=== PATIENT | female | born 1975 | race Caucasian/White ===

== ENCOUNTER → 2016-10-21 | Outpatient (CLI) | payer MEDICAID, OTHER | END | disposition home or self-care (01) | LOC: LAB.O 07:55 | PROVIDERS: ATTEND General Practice | DX: R53.82 Chronic fatigue, unspecified (principal) ==

== ENCOUNTER 2019-08-25 13:45 | Emergency (ER) | payer BC, OTHER ==
--- NOTE | 2019-08-25 14:03 | ED.PDOC ---
History of Present Illness - General Chief Complaint: Respiratory Problem Time Seen by Provider: 08/25/19 14:00 - History of Present Illness Initial Comments: 44 yo F PMH Hysterectomy presents to ED Mother at bedside c/o cough congestion sore throat body aches x 1 week. Denies fever chills admits nausea vomiting diarrhea no blood denies chest pain sob diaphoresis. Nochange in diet rest or bladder denies drinking or smoking admits FH HTN DM does not have PMD for follow up no other c/o today. Allergies/Adverse Reactions: Allergies NO KNOWN ALLERGY Allergy (Unverified 03/26/13 10:21) Home Medications: Ambulatory Orders Acetaminophen [Tylenol Es] 1 - 2 tab PO Q6H PRN #0 tab 03/31/13 Amitriptyline HCl 100 mg PO HS #0 03/31/13 Buspirone HCl 15 mg PO DAILY #0 03/31/13 Ciprofloxacin HCl [Cipro] 250 mg PO DAILY #0 tab 03/31/13 HYDROcodone 5MG/APAP 325MG [[place] 5/325] 1 tab PO Q8H PRN #0 tab 03/31/13 Ibuprofen [Motrin] 600 mg PO Q8H PRN #0 tab 03/31/13 Magnesium Hydroxide [Milk Of Magnesia] 30 ml PO Q4-6H PRN #0 ud 03/31/13 Sertraline HCl [Zoloft] 200 mg PO DAILY #0 03/31/13 Acetaminophen [Tylenol] 650 mg PO Q6H PRN #30 tab 08/25/19 Azithromycin Tab [Zithromax Tab] 250 mg PO QDPC 5 Days #6 tab 08/25/19 Ibuprofen 600 mg PO Q6H PRN #20 tab 08/25/19 Prednisone 40 mg PO DAILY 5 Days #10 tab 08/25/19 Review of Systems - Review of Systems Constitutional: States: see HPI EENTM: States: see HPI Respiratory: States: see HPI Cardiology: States: see HPI Gastrointestinal/Abdominal: States: see HPI Genitourinary: States: see HPI Musculoskeletal: States: see HPI Skin: States: see HPI Neurological: States: see HPI Endocrine: States: see HPI Hematologic/Lymphatic: States: see HPI All other Systems: Reviewed and Negative Past Medical History (General) - Patient Medical History Hx Congestive Heart Failure: No Hx Diabetes: No Family Medical History - Family History Mother Family History: No Known Physical Exam - Physical Exam General Appearance: No apparent distress Eye Exam: bilateral normal Ears, Nose, Throat: normal ENT inspection, pharyngeal erythema Neck: non-tender, full range of motion Respiratory: normal breath sounds Cardiovascular/Chest: regular rate, rhythm Gastrointestinal/Abdominal: non tender, soft Rectal Exam: deferred Back Exam: normal inspection Extremity: normal range of motion, non-tender Neurologic: no motor/sensory deficits Skin Exam: normal color Progress - Progress Progress: 08/25/19 14:04 A/P-Pharyngitis Pneumonia Cough URI Myalgia-flu strep tylenol cxr reassess if unremarkable d/c follow up pcp referral tylenol ibuprofen prednisone azithromycin for the pharyngitis and pneumonia 08/25/19 14:35 08/25/19 14:36 EXAM DESCRIPTION: Chest,2 Views CLINICAL HISTORY: 44 years Female, cough KRISTY RISON: None available. TECHNIQUE: PA and lateral radiographs of the chest were obtained. FINDINGS: Trachea is midline.The cardiomediastinal silhouette is normal in size. The pulmonary vasculature is within normal limits. Questionable airspace opacities in the right midlung could represent early pneumonia.No evidence of pleural effusions.No evidence of pneumothorax. IMPRESSION: Questionable airspace opacities in the right midlung could represent early pneumonia. 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 08/25/19 15:11 Laboratory Tests 08/25/19 14:05 Group A Strep Rapid Negative Departure - Departure Clinical Impression: Cough, Myalgia Pneumonia Qualifiers: Pneumonia type: due to unspecified organism Laterality: unspecified laterality Lung location: unspecified part of lung Qualified Code(s): J18.9 - Pneumonia, unspecified organism Pharyngitis Qualifiers: Pharyngitis/tonsillitis etiology: unspecified etiology Qualified Code(s): J02.9 - Acute pharyngitis, unspecified URI (upper respiratory infection) Qualifiers: URI type: unspecified URI Qualified Code(s): J06.9 - Acute upper respiratory infection, unspecified Time of Disposition: 15:15 Disposition: Discharge to Home or Self Care Condition: Good Departure Forms: ED Discharge - Pt. Copy, Patient Portal Self Enrollment Referrals: Reuben Chris MD [Referring] - 1-2 Days Prescriptions: Acetaminophen [Tylenol] 650 mg PO Q6H PRN #30 tab PRN Reason: Pain Azithromycin Tab [Zithromax Tab] 250 mg PO QDPC 5 Days #6 tab Ibuprofen 600 mg PO Q6H PRN #20 tab PRN Reason: Pain Prednisone 40 mg PO DAILY 5 Days #10 tab Home Medications: Ambulatory Orders Acetaminophen [Tylenol Es] 1 - 2 tab PO Q6H PRN #0 tab 03/31/13 Amitriptyline HCl 100 mg PO HS #0 03/31/13 Buspirone HCl 15 mg PO DAILY #0 03/31/13 Ciprofloxacin HCl [Cipro] 250 mg PO DAILY #0 tab 03/31/13 HYDROcodone 5MG/APAP 325MG [[place] 5/325] 1 tab PO Q8H PRN #0 tab 03/31/13 Ibuprofen [Motrin] 600 mg PO Q8H PRN #0 tab 03/31/13 Magnesium Hydroxide [Milk Of Magnesia] 30 ml PO Q4-6H PRN #0 ud 03/31/13 Sertraline HCl [Zoloft] 200 mg PO DAILY #0 03/31/13 Acetaminophen [Tylenol] 650 mg PO Q6H PRN #30 tab 08/25/19 Azithromycin Tab [Zithromax Tab] 250 mg PO QDPC 5 Days #6 tab 08/25/19 Ibuprofen 600 mg PO Q6H PRN #20 tab 08/25/19 Prednisone 40 mg PO DAILY 5 Days #10 tab 08/25/19
[2019-08-25 14:12] VITALS: O2SAT 99
[2019-08-25] MEDS: ACETAMINOPHEN 500 MG TAB PO ONE (14:19)
--- NOTE | 2019-08-25 14:36 | RAD ---
EXAM DESCRIPTION: Chest,2 Views CLINICAL HISTORY: 44 years Female, cough COMPARISON: None available. TECHNIQUE: PA and lateral radiographs of the chest were obtained. FINDINGS: Trachea is midline.The cardiomediastinal silhouette is normal in size. The pulmonary vasculature is within normal limits. Questionable airspace opacities in the right midlung could represent early pneumonia.No evidence of pleural effusions.No evidence of pneumothorax. IMPRESSION: Questionable airspace opacities in the right midlung could represent early pneumonia. 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
[2019-08-25 15:42] VITALS: BP 99/65; TEMP 97.6
== END 2019-08-25 15:35 | disposition home or self-care (01) ==
LOC: ER 13:45
DX: J18.9 Pneumonia, unspecified organism (principal); J02.9 Acute pharyngitis, unspecified; J06.9 Acute upper respiratory infection, unspecified

== ENCOUNTER → 2020-06-21 | Outpatient (CLI) | payer BC ==
--- NOTE | 2020-06-22 09:27 | MRI ---
EXAM DESCRIPTION: Brain w/wo Contrast: Magnetic Resonance Imaging. 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 Pituitary dysfunction. COMPARISON: MRI scan of the brain December 2017. TECHNIQUE: Multiplanar, high-field MRI, multiple conventional sequences, and special sequences through the pituitary gland, without and with 1 mL per 5 kg body weight Dotarem gadolinium IV contrast. No adverse reactions. Multiple axial diffusion sequences. FINDINGS: Pituitary gland occupies most of the sella compartment. Normal signal. No large signal voids. Normal contrast enhancement with no mass showing hyperenhancement or no enhancement. No supra-sellar mass. Normal size and orientation of the infundibulum and normal enhancement. Normal signal size and enhancement of the optic chiasm, distal optic tracts, and the proximal optic nerves. Normal FLAIR and T2-weighted signal in the periventricular white matter and brenner-white matter junctions of the cerebral hemispheres. No abnormal contrast enhancement. Normal signal in the bilateral basal ganglia. Normal contrast enhancement. Normal signal in the brainstem and cerebellar hemispheres. Normal contrast enhancement. Concordance of the diffusion and non-diffusion sequences with no evidence of acute or subacute infarction. Cortical sulci, ventricles, and other CSF spaces, and the subdural spaces are normally configured for patient's age. No effacement or displacement. No midline shift. No extra-axial hemorrhage. Normal contrast enhancement. IACs are symmetric bilaterally. No fluid in the bilateral mastoid air cells. No mass effect in the bilateral Cerebellopontine angles. Normal contrast enhancement. Base of the cerebellar tonsils is slightly above the foramen magnum. Normal signal in the paranasal sinuses. The bony calvarium is intact. IMPRESSION: 1. Normal-sized pituitary gland is of normal signal and enhancement. No mass. No expansion of the sella or mass effect on the sella, normal signal. No suprasellar mass. 2. Normal noncontrast MRI diffusion study of the brain with no evidence of acute significant ischemia, or acute or subacute infarction.. No abnormal contrast enhancement in the brain or brainstem. Electronically signed by: Cornelius Yeboah MD 06/22/2020 9:26 AM [facility]
== END ==
LOC: MRI 13:53
PROVIDERS: ATTEND Internal Medicine Endocrinology, Diabetes & Metabolism
DX: E27.49 Other adrenocortical insufficiency (principal); E23.7 Disorder of pituitary gland, unspecified